=== PATIENT | female | born 1960 | race Caucasian/White ===

== ENCOUNTER 2023-01-25 13:22 | Emergency (ER) | payer OTHER ==
[~2023-01-25] VITALS: Ht 165.1 cm; Wt 81.6 kg
[2023-01-25] MEDS ORDERED: AMOX/K CLAV875 M1 PO (15:54)
[2023-01-25 17:10] VITALS: BP 142/87
== END 2023-01-25 17:12 | disposition home or self-care (01) | DRG 605 ==
LOC: ED 13:22
DX: S71.052A Open bite, left hip, initial encounter (principal); W55.01XA Bitten by cat, initial encounter; Y92.009 Unspecified place in unspecified non-institutional (private) residence as the place of occurrence of the external cause

== ENCOUNTER 2023-01-28 09:48 | Emergency (ER) | payer OTHER ==
[~2023-01-28] VITALS: Ht 165.1 cm; Wt 72.0 kg
[~2023-01-28 09:48] MED LIST: AMOX/K CLAV875 M1 PO
[2023-01-28 09:57] VITALS: BP 143/84
[2023-01-28 10:00] VITALS: BP 160/92
[2023-01-28] MEDS ORDERED: ZPAK PO (10:08)
[2023-01-28 10:45] VITALS: BP 164/84
== END 2023-01-28 10:53 | disposition home or self-care (01) | DRG 605 ==
LOC: ED 09:48
DX: S71.052A Open bite, left hip, initial encounter (principal); W55.01XA Bitten by cat, initial encounter